=== PATIENT | male | born 1990 | race Caucasian/White ===

== ENCOUNTER → 2016-08-25 | Outpatient (CLI) | payer OTHER ==
[~2016-08-25] MED LIST: CLXUNK
--- NOTE | 2016-08-25 14:34 | DIAGNOSTIC IMAGING REPORT ---
RIGHT WRIST MIN 3 VIEWS ROUTINE CLINICAL HISTORY: R WRIST PAIN Right COMPARISON: None. DISCUSSION: The bones and joint spaces appear intact. There is no evidence of fracture, dislocation or bony disease. There is no evidence for soft tissue swelling. IMPRESSION: Negative study. Electronically signed by: Parvez Han M.D. 08/25/2016 2:33 PM Dictated Date/Time: 08/25/2016 2:30 PM
== END | disposition home or self-care (01) ==
LOC: C.RAD1850 14:15
PROVIDERS: ATTEND Emergency Medicine
DX: M25.531 Pain in right wrist (principal)

== ENCOUNTER → 2017-09-01 | Outpatient (CLI) | payer OTHER ==
[~2017-09-01] MED LIST changes: +OPTIRAY 320 IV PRN
--- NOTE | 2017-09-01 15:01 | DIAGNOSTIC IMAGING REPORT ---
ABD/PELVIS IV AND ORAL CONT CT DOSE: 622.04 mGy.cm HISTORY: Pain LOWER ABD PAIN, R/O HERNIA W/ OBSTRUCTION TECHNIQUE: Multiaxial CT images of the abdomen and pelvis were performed following the use of intravenous and oral contrast. A dose lowering technique was utilized adhering to the principles of ALARA. COMPARISON STUDY: None. FINDINGS: The lung bases are clear. The liver, spleen, gallbladder, pancreas, kidneys, and adrenal glands are within normal limits. No bowel wall thickening or obstruction. The pelvic organs are unremarkable. No suspicious lytic or blastic osseous lesions. Mild rectal fecal impaction IMPRESSION: Mild rectal fecal impaction. Otherwise negative study. The above report was generated using voice recognition software. It may contain grammatical, syntax or spelling errors. Electronically signed by: Parvez Han M.D. 09/01/2017 2:59 PM Dictated Date/Time: 09/01/2017 2:56 PM
== END | disposition home or self-care (01) ==
LOC: C.CTS 12:30
PROVIDERS: ATTEND Family Medicine
DX: K46.0 Unspecified abdominal hernia with obstruction, without gangrene (principal); R10.30 Lower abdominal pain, unspecified

== ENCOUNTER 2023-01-05 12:26 | Inpatient (IN) ==
[2023-01-05] MEDS ORDERED: RAPID SEQUENCE INDUCTION BAG ONE (12:31)
[2023-01-05] MEDS ORDERED: PROPOFOL IV EMULSION 10 MG/ML 100 ML VIAL IV ONE (12:48)
[2023-01-05] MEDS ORDERED: PROPOFOL IV EMULSION 10 MG/ML 20 ML VIAL IV ONE (12:48)
[2023-01-05] MEDS ORDERED: STAT IV Infusion **Titration per Protocol STA ×2 (12:55→14:39)
[2023-01-05] MEDS: propofoL 1,000 MG/100 ML VIAL IV SCH ×3 (13:09→23:43)
--- NOTE | 2023-01-05 13:16 | XRay Report ---
SINGLE VIEW CHEST CLINICAL HISTORY: Intubation. Aspiration. FINDINGS: 2 AP, portable, supine chest radiographs are compared to study dated 01/21/2009. An endotrac heal tube has been placed. The tip projects approximately 4 cm above the kalie on the second image. The cardiomediastinal silhouette is unremarkable. The lungs and pleural spaces are clear. No pneumoth orax is seen. The bony thorax is grossly intact. IMPRESSION: 1. An endotracheal tube has been placed as above. 2. The lungs are clear. ACT 112: Negative or not required by law. Electronically signed by: Len Dempsey M.D. 01/05/2023 1:14 PM
[2023-01-05] MEDS: PROPOFOL BOLUS FROM BAG IV PRN ×8 (13:21→15:13)
[2023-01-05 13:26] LABS: Albumin Level 4.7 gm/dl (3.4-5.0); BUN Creatinine Ratio 15.6 (10-20); Basophils # (auto) 0.05 K/uL (0.00-0.20); Basophils % (auto) 0.7 %; Bilirubin,Total 0.3 mg/dl (0.2-1.0); Calcium 9.2 mg/dl (8.6-10.3); Creatinine Clr Calc Pharmacy 149.8 ml/min; Eosinophils # (auto) 0.02 K/uL (0.00-0.50); Eosinophils % (auto) 0.3 %; Est GFR (African American) 138.2 ml/min; Est GFR (Non-African American) 119.2 ml/min; Hematocrit (blood only) 41.9 % (42.0-52.0); Hemoglobin 14.5 g/dl (14.0-18.0); Immature Granulocytes # (auto) 0.02 K/uL (0.01-0.20); Immature Granulocytes % (auto) 0.3 %; Lymphocytes % (auto) 19.2 %; Mean Corpuscular Hemoglobin 30.7 pg (25.0-34.0); Mean Corpuscular Hgb Conc 34.6 g/dL (32.0-36.0); Mean Corpuscular Volume 88.6 fL (80.0-100.0); Mean Platelet Volume 9.7 fL (9.4-12.4); Monocytes # (auto) 0.33 K/uL (0.11-0.59); Monocytes % (auto) 4.5 %; Neutrophils # (auto) 5.46 K/uL (1.40-6.50); Platelet Count 197 K/uL (130-400); Potassium 4.4 mmol/L (3.5-5.1); RDW Coefficient of Variation 13.3 % (11.5-14.5); RDW Standard Deviation 43.4 fL (36.4-46.3); Red Blood Count 4.73 M/uL (4.70-6.10); Total Protein 8.4 gm/dl (6.0-8.3); White Blood Count 7.28 K/ul (4.8-10.8)
--- NOTE | 2023-01-05 13:28 | CT Scan Report ---
CT SCAN OF THE BRAIN WITHOUT IV CONTRAST CLINICAL HISTORY: Change in mental status. Found down. COMPARISON STUDY: CT of the brain dated 09/03/2022. TECHNIQUE: Unenhanced axial CT scan of the brain is performed from the vertex to the skull base. A d ose lowering technique was utilized adhering to the principles of ALARA. CT DOSE: 688.24 mGy.cm FINDINGS: An endotracheal tube is noted on the ward supervisor tomogram. Layering fluid is noted in the pharynx. Brain parenchyma: The brain parenchyma is normal in appearance. There is no hemorrhage, mass effect, or evidence of acute territorial ischemia by CT criteria. Ceelstin-white matter differentiation is preser sherly. No extra-axial fluid collection is seen. Ventricles, sulci, cisterns: Normal in configuration. Intracranial vasculature: The visualized intracranial vasculature at the skull base is normal in appe arance. Calvarium: Unremarkable. Sinuses and mastoids: There is mild mucosal thickening and fluid within the ethmoid sinuses. Trace fl uid is seen within the right maxillary antrum, the sphenoid sinuses, and the left frontal sinus. The mastoid air cells are well pneumatized. Orbits: The bony orbits are grossly intact. IMPRESSION: No acute intracranial abnormality. ACT 112: Negative or not required by law. Electronically signed by: Len Dempsey M.D. 01/05/2023 1:26 PM
[2023-01-05] MEDS ORDERED: MIDAZOLAM HCL 1 MG/ML 2ML VIAL IV PRN (13:32)
[2023-01-05 13:53] LABS: Appearance Urine Clear (Clear); Bacteria Urine Automated Negative (Negative); Bilirubin Urine Negative (Negative); Blood Urine Negative (Negative); Color Urine Yellow; Epithelial Cell Urine Auto >30 /lpf (0-5); Glucose Urine UA Negative (Negative); Ketones Urine Trace (Negative); Leukocyte Esterase Urine Negative (Negative); Nitrite Urine Negative (Negative); Protein Urine 2+ (Negative); Specific Gravity Urine 1.028 (1.000-1.030); Urobilinogen Urine Negative (Negative)
[2023-01-05 14:05] LABS: iSTAT Arterial Blood Gas HCO3 21 meg/L (19-24); iSTAT Arterial Blood Gas pCO2 39 mmHg (35-46); iSTAT Arterial Blood Gas pH 7.33 (7.35-7.45); iSTAT Arterial Blood Gas pO2 107 mmHg (80-95); iSTAT Carbon Dioxide 22 mmol/L (24-31); iSTAT Hematocrit 42 % (42-52); iSTAT Hemoglobin 14.3 g/dl (14.0-18.0); iSTAT Potassium 3.9 mmol/L (3.3-5.0); iSTAT Sodium 142 mmol/L (135-144)
[2023-01-05 14:22] LABS: Amphetamines+Metham, Urine Neg (Neg); Barbiturates, Urine Neg (Neg); Benzodiazepine, Urine Neg (Neg); Cocaine, Urine Neg (Neg); MDMA (Ecstacy), Urine Neg (Neg); Marijuana, Urine Neg (Neg); Methadone, Urine Neg (Neg); Opiate, Urine Neg (Neg); Phencyclidine, Urine Neg (Neg)
[2023-01-05] MEDS ORDERED: fentaNYL BOLUS from BAG IV PRN (14:39)
[2023-01-05] MEDS ORDERED: fentaNYL citrate 2,500 MCG/250 ML BAG IV SCH (14:45)
[2023-01-05] MEDS ORDERED: dexMEDEtomidine 200 MCG/50 ML BAG IV SCH (14:45)
--- NOTE | 2023-01-05 14:45 | Emergency Department Note ---
Impression & Plan Alcohol intoxication, Obtunded ED Provider Note NAME: BRIAN WILLIAM III AGE: 32 SEX: M : 1990 ARRIVES VIA: Ambulance INFORMANT: Patient, ED PROVIDER(S): Tanika Pacheco MD CHIEF COMPLAINT: Unresponsive HPI: This is a 32-year-old male with history of alcohol use disorder, ADHD, migraines presenting for unresponsiveness. Patient was reportedly found by his neighbors after hearing outside. Upon EMS arrival patient was facedown in the bathroom covered in emesis. He had spontaneous respirations but was essentially unresponsive for them, only responding occasionally to painful stimuli. He was nontracking. Upon arrival to the emergency department here, patient is having spontaneous respirations, covered in emesis from his mouth, head, has gurgling respirations. He had episodes of coughing while here. He opens his eyes to nasal stimuli but does not track. He eventually was responsive to commands such as squeezing hands or wiggling toes. The patient however was still fairly obtunded, concern for airway requiring intubation. ROS: See above HPI for pertinent positives & negatives. A total of 10 systems reviewed and were otherwise negative. PAST MEDICAL HISTORY: See Below PAST SURGICAL HISTORY: See Below FAMILY HISTORY: See Below SOCIAL HISTORY: See Below HOME MEDICATIONS: See Below ALLERGIES: See Below VITALS: See Below PHYSICAL EXAMINATION: General: Unresponsive, obtunded Head: Normocephalic covered in emesis Eyes: Normal inspection, extraocular muscles intact Ear, nose, throat: Normal external exam Neck: Normal range of motion Respiratory: Rhonchi in all lung rodriguez Cardiovascular: Regular rate/rhythm, no murmur GI: soft, nontender, no guarding or rebound Extremities: nontender, moves all extremities Neuro: Obtunded, moves all extremities to command Skin: Warm, dry, and intact MEDICAL DECISION MAKING: This is a 32-year-old male with history of alcohol use disorder, ADHD, migraines presenting for unresponsiveness. Patient required intubation due to obstructing airway and obvious emesis concerning for aspiration event. Patient admitted with 7.5 tube, no complications. Patient went over CT without acute intracranial process on CT read. Chest x-ray reveals initially 2 that is somewhat deep, retracted with formularies above kalie now. Patient is waking up and requiring further sedation. Patient's alcohol level comes back at 565 explaining patient's obtunded state. Switch from propofol to include Versed with pushes of each. Discussed case with patient's father as well as sister over the phone. ICU down to bedside evaluate the patient. Discussed case with hospitalist for admission. Lab work reviewed showing no leukocytosis or anemia, ABG reveals no hypercarbia, pO2 107. Patient does have a elevated lactic as well which for as well as a transaminitis and elevated lipase concerning for early pancreatitis. Patient excepted to hospital/ICU under Dr. Cortez, hospitalist and Dr. Santillan, telecommunications consultant. Triage Nursing notes reviewed. Prior medical records reviewed Vital Signs: reviewed and remarkable for no significant abnormalities Differential diagnosis: Stroke, intracranial hemorrhage, drug intoxication, opiate overdose, alcohol overdose ER treatment provided: See below Diagnostics interpreted by me: ECG: ECG independently interpreted by me with normal sinus rhythm, rate of 98, normal axis, normal SC, normal QRS, normal QTc, no ST segment elevations consistent with STEMI criteria Cardiac Monitoring: An order was placed for continuous cardiac monitoring. The monitor shows a rate of 97 with sinus rhythm Laboratory studies: As stated above and show below. Imaging studies: See below. Radiographic imaging was reviewed by myself Consultation(s): None Endotracheal Intubation Indication diminished GCS, aspiration The patient was on 100% oxygen via NRB prior to the procedure. Suction, airway equipment, RSI drugs, respiratory equipment, and appropriate personnel were prepared prior to the initiation of the procedure. A time out was taken. Induction was performed with etomidate.. After observing the clinical benefit of the medications, the airway was easily visualized utilizing a video laryngoscope. A 7.5 size ETT tube was placed atraumatically to 25 cm using standard technique. The cuff inflated without signs of malfunction. There were bilateral breath sounds, positive colormetric change, no gastric sounds, a good capnography waveform, and post procedure pulse oximetry was 99%. Post intubation sedation was administered using propofol. There were no complications. Critical Care Note: I have personally spent 65 minutes of critical care time in the direct management of this patient. This includes bedside care, interpretation of diagnostic studies, and testing, discussion with consultants, patient, and family members, and other required patient management activities. This 65 minutes is in excess of all separately billable procedures. Past Med/Surg History Medical History History of multiple concussions No pertinent past medical history Surgical History No pertinent past surgical history No significant past surgical history S/P wisdom tooth extraction S/P wrist surgery Family History Mother No pertinent family history Father No pertinent family history Social History Smoking Status: Unknown if ever smoked Tobacco Type: Smokeless Tobacco (Dip or Chew) Preferred Language: Yi marital status: current occupational status: employed Feels Safe at Home: Yes Allergies Allergies Allergy/AdvReac Type Severity Reaction Status Date / Time azithromycin AdvReac Intermediate Gastrointestinal Verified 01/05/23 15:22 Upset Home Meds Home Medications Medication Instructions Recorded Confirmed acetaminophen 325 mg tablet 650 mg PO QID PRN Pain 04/17/19 01/05/23 (Tylenol) ibuprofen 200 mg tablet (Advil) 200 mg PO DIRECTED PRN Pain 09/03/22 01/05/23 Results & Data (ED) Vital Signs Vital Signs - 24 hr 01/05/23 12:29 01/05/23 12:33 01/05/23 12:40 Temperature Temperature Source Pulse Rate 105 H 115 H 116 H Pulse Rate [Apical] Pulse Rate from SpO2 Sensor 111 H 115 H Pulse Rhythm Regular Pulse Strength Normal Respiratory Rate 20 22 17 Respiratory Effort / Characteristics Non-Labored Spontaneous Respiratory Depth Normal Blood Pressure 127/88 127/88 124/90 Blood Pressure [Right Arm] Blood Pressure Mean 101 101 101 Blood Pressure Mean [Right Arm] Blood Pressure Position Lying Pulse Oximetry 94 92 98 Oxygen Delivery Method Room Air Room Air Room Air Fraction of Inspired Oxygen SaO2/FiO2 Ratio Sepsis Recent Fever Within 48 Hours No Sepsis New/Unexplained Change in Mental Status No Sepsis Action Taken by Nursing No Action Required End-Tidal CO2 01/05/23 12:50 01/05/23 13:02 01/05/23 13:02 Temperature 34.2 C L Temperature Source Simmons Cath ( Temp Sensing) Pulse Rate 120 H 102 H Pulse Rate [Apical] Pulse Rate from SpO2 Sensor 120 H 102 H Pulse Rhythm Pulse Strength Respiratory Rate 12 16 Respiratory Effort / Characteristics Respiratory Depth Blood Pressure 133/98 Blood Pressure [Right Arm] Blood Pressure Mean 109 Blood Pressure Mean [Right Arm] Blood Pressure Position Pulse Oximetry 100 99 Oxygen Delivery Method Mechanical Vent Fraction of Inspired Oxygen SaO2/FiO2 Ratio Sepsis Recent Fever Within 48 Hours Sepsis New/Unexplained Change in Mental Status Sepsis Action Taken by Nursing End-Tidal CO2 38 34 01/05/23 13:10 01/05/23 13:11 01/05/23 13:17 Temperature Temperature Source Pulse Rate 115 H 105 H 102 H Pulse Rate [Apical] Pulse Rate from SpO2 Sensor 115 H 105 H Pulse Rhythm Pulse Strength Respiratory Rate 17 16 Respiratory Effort / Characteristics Respiratory Depth Blood Pressure 138/105 H 133/99 Blood Pressure [Right Arm] Blood Pressure Mean 116 110 Blood Pressure Mean [Right Arm] Blood Pressure Position Pulse Oximetry 100 100 Oxygen Delivery Method Mechanical Vent Mechanical Vent Fraction of Inspired Oxygen SaO2/FiO2 Ratio Sepsis Recent Fever Within 48 Hours Sepsis New/Unexplained Change in Mental Status Sepsis Action Taken by Nursing End-Tidal CO2 34 38 01/05/23 13:23 01/05/23 13:26 01/05/23 13:28 Temperature Temperature Source Pulse Rate 99 H 108 H 100 H Pulse Rate [Apical] Pulse Rate from SpO2 Sensor 98 H 108 H Pulse Rhythm Pulse Strength Respiratory Rate 9 L 17 16 Respiratory Effort / Characteristics Respiratory Depth Blood Pressure 122/93 121/87 Blood Pressure [Right Arm] Blood Pressure Mean 102 98 Blood Pressure Mean [Right Arm] Blood Pressure Position Pulse Oximetry 99 100 100 Oxygen Delivery Method Fraction of Inspired Oxygen 30 SaO2/FiO2 Ratio Sepsis Recent Fever Within 48 Hours Sepsis New/Unexplained Change in Mental Status Sepsis Action Taken by Nursing End-Tidal CO2 37 39 36 01/05/23 13:30 01/05/23 13:31 01/05/23 13:35 Temperature Temperature Source Pulse Rate 91 H Pulse Rate [Apical] Pulse Rate from SpO2 Sensor 97 H 98 H 91 H Pulse Rhythm Pulse Strength Respiratory Rate 16 17 16 Respiratory Effort / Characteristics Respiratory Depth Blood Pressure 95/63 L 111/73 104/68 Blood Pressure [Right Arm] Blood Pressure Mean 73 85 80 Blood Pressure Mean [Right Arm] Blood Pressure Position Pulse Oximetry 98 100 100 Oxygen Delivery Method Mechanical Vent Mechanical Vent Mechanical Vent Fraction of Inspired Oxygen SaO2/FiO2 Ratio Sepsis Recent Fever Within 48 Hours Sepsis New/Unexplained Change in Mental Status Sepsis Action Taken by Nursing End-Tidal CO2 41 38 39 01/05/23 13:40 01/05/23 13:43 01/05/23 13:49 Temperature 35.2 C L Temperature Source Simmons Cath ( Temp Sensing) Pulse Rate 92 H 94 H Pulse Rate [Apical] Pulse Rate from SpO2 Sensor 92 H 93 H Pulse Rhythm Pulse Strength Respiratory Rate 17 17 Respiratory Effort / Characteristics Respiratory Depth Blood Pressure 107/67 103/73 Blood Pressure [Right Arm] Blood Pressure Mean 80 83 Blood Pressure Mean [Right Arm] Blood Pressure Position Pulse Oximetry 100 100 Oxygen Delivery Method Mechanical Vent Mechanical Vent Fraction of Inspired Oxygen SaO2/FiO2 Ratio Sepsis Recent Fever Within 48 Hours Sepsis New/Unexplained Change in Mental Status Sepsis Action Taken by Nursing End-Tidal CO2 37 35 01/05/23 13:50 01/05/23 14:00 01/05/23 14:10 Temperature Temperature Source Pulse Rate 93 H 94 H 99 H Pulse Rate [Apical] Pulse Rate from SpO2 Sensor 94 H 98 H 99 H Pulse Rhythm Pulse Strength Respiratory Rate 16 17 18 Respiratory Effort / Characteristics Respiratory Depth Blood Pressure 108/71 112/87 125/77 Blood Pressure [Right Arm] Blood Pressure Mean 83 95 93 Blood Pressure Mean [Right Arm] Blood Pressure Position Pulse Oximetry 100 100 100 Oxygen Delivery Method Mechanical Vent Mechanical Vent Mechanical Vent Fraction of Inspired Oxygen SaO2/FiO2 Ratio Sepsis Recent Fever Within 48 Hours Sepsis New/Unexplained Change in Mental Status Sepsis Action Taken by Nursing End-Tidal CO2 35 37 45 01/05/23 15:00 01/05/23 15:02 01/05/23 15:08 Temperature 35.7 C L Temperature Source Simmons Cath ( Temp Sensing) Pulse Rate 72 Pulse Rate [Apical] Pulse Rate from SpO2 Sensor 73 Pulse Rhythm Pulse Strength Respiratory Rate 16 Respiratory Effort / Characteristics Respiratory Depth Blood Pressure 109/64 Blood Pressure [Right Arm] Blood Pressure Mean 78 Blood Pressure Mean [Right Arm] Blood Pressure Position Pulse Oximetry 100 Oxygen Delivery Method Mechanical Vent Mechanical Vent Fraction of Inspired Oxygen SaO2/FiO2 Ratio Sepsis Recent Fever Within 48 Hours Sepsis New/Unexplained Change in Mental Status Sepsis Action Taken by Nursing End-Tidal CO2 33 01/05/23 15:10 01/05/23 15:20 01/05/23 15:20 Temperature Temperature Source Pulse Rate 88 82 Pulse Rate [Apical] Pulse Rate from SpO2 Sensor 88 82 Pulse Rhythm Pulse Strength Respiratory Rate 17 Respiratory Effort / Characteristics Respiratory Depth Blood Pressure 107/65 102/65 Blood Pressure [Right Arm] Blood Pressure Mean 80 75 Blood Pressure Mean [Right Arm] Blood Pressure Position Pulse Oximetry 100 100 Oxygen Delivery Method Mechanical Vent Fraction of Inspired Oxygen SaO2/FiO2 Ratio Sepsis Recent Fever Within 48 Hours Sepsis New/Unexplained Change in Mental Status Sepsis Action Taken by Nursing End-Tidal CO2 33 01/05/23 15:30 01/05/23 15:30 01/05/23 15:40 Temperature Temperature Source Pulse Rate 69 70 Pulse Rate [Apical] Pulse Rate from SpO2 Sensor 68 71 Pulse Rhythm Pulse Strength Respiratory Rate 16 Respiratory Effort / Characteristics Respiratory Depth Blood Pressure 107/57 L 103/64 Blood Pressure [Right Arm] Blood Pressure Mean 66 71 Blood Pressure Mean [Right Arm] Blood Pressure Position Pulse Oximetry 100 100 Oxygen Delivery Method Mechanical Vent Fraction of Inspired Oxygen SaO2/FiO2 Ratio Sepsis Recent Fever Within 48 Hours Sepsis New/Unexplained Change in Mental Status Sepsis Action Taken by Nursing End-Tidal CO2 33 33 01/05/23 15:50 01/05/23 16:00 01/05/23 16:10 Temperature Temperature Source Pulse Rate 72 74 74 Pulse Rate [Apical] Pulse Rate from SpO2 Sensor 73 72 74 Pulse Rhythm Pulse Strength Respiratory Rate 17 16 16 Respiratory Effort / Characteristics Respiratory Depth Blood Pressure 104/67 106/64 108/66 Blood Pressure [Right Arm] Blood Pressure Mean 79 78 80 Blood Pressure Mean [Right Arm] Blood Pressure Position Pulse Oximetry 100 100 100 Oxygen Delivery Method Mechanical Vent Mechanical Vent Mechanical Vent Fraction of Inspired Oxygen SaO2/FiO2 Ratio Sepsis Recent Fever Within 48 Hours Sepsis New/Unexplained Change in Mental Status Sepsis Action Taken by Nursing End-Tidal CO2 33 32 33 01/05/23 16:20 01/05/23 16:30 01/05/23 16:40 Temperature Temperature Source Pulse Rate 75 71 78 Pulse Rate [Apical] Pulse Rate from SpO2 Sensor 75 71 79 Pulse Rhythm Pulse Strength Respiratory Rate 17 16 16 Respiratory Effort / Characteristics Respiratory Depth Blood Pressure 107/65 113/74 116/66 Blood Pressure [Right Arm] Blood Pressure Mean 79 87 82 Blood Pressure Mean [Right Arm] Blood Pressure Position Pulse Oximetry 100 100 100 Oxygen Delivery Method Mechanical Vent Mechanical Vent Mechanical Vent Fraction of Inspired Oxygen SaO2/FiO2 Ratio Sepsis Recent Fever Within 48 Hours Sepsis New/Unexplained Change in Mental Status Sepsis Action Taken by Nursing End-Tidal CO2 32 31 31 01/05/23 16:50 01/05/23 17:00 Temperature Temperature Source Pulse Rate 81 Pulse Rate [Apical] 79 Pulse Rate from SpO2 Sensor 81 Pulse Rhythm Pulse Strength Respiratory Rate 17 19 Respiratory Effort / Characteristics Mechanically Ventilated Respiratory Depth Normal Blood Pressure 108/69 Blood Pressure [Right Arm] 102/63 Blood Pressure Mean 82 Blood Pressure Mean [Right Arm] 76 Blood Pressure Position Pulse Oximetry 100 100 Oxygen Delivery Method Mechanical Vent Mechanical Vent Fraction of Inspired Oxygen 30 SaO2/FiO2 Ratio 333 Sepsis Recent Fever Within 48 Hours Sepsis New/Unexplained Change in Mental Status Sepsis Action Taken by Nursing End-Tidal CO2 31 Laboratory Data 01/05/23 12:38 01/05/23 12:38 Lab Results 01/05/23 01/05/23 01/05/23 Range/Units 12:38 13:03 13:47 WBC 7.28 (4.8-10.8) K/ul RBC 4.73 (4.70-6.10) M/uL Hgb 14.5 (14.0-18.0) g/dl POC Hgb 14.3 (14.0-18.0) g/dl Hct 41.9 L (42.0-52.0) % POC Hct 42 (42-52) % MCV 88.6 (80.0-100.0) fL MCH 30.7 (25.0-34.0) pg MCHC 34.6 (32.0-36.0) g/dL RDW Std Deviation 43.4 (36.4-46.3) fL RDW Coeff of Corine 13.3 (11.5-14.5) % Plt Count 197 (130-400) K/uL MPV 9.7 (9.4-12.4) fL Immature Gran % (Auto) 0.3 % Neut % (Auto) 75.0 % Lymph % (Auto) 19.2 % [place] % (Auto) 4.5 % Eos % (Auto) 0.3 % Baso % (Auto) 0.7 % Neut # (Auto) 5.46 (1.40-6.50) K/uL Lymph # (Auto) 1.40 (1.20-3.40) K/uL [place] # (Auto) 0.33 (0.11-0.59) K/uL Eos # (Auto) 0.02 (0.00-0.50) K/uL Baso # (Auto) 0.05 (0.00-0.20) K/uL Immature Gran # (Auto) 0.02 (0.01-0.20) K/uL POC pH 7.33 L (7.35-7.45) POC pCO2 39 (35-46) mmHg POC pO2 107 H (80-95) mmHg POC HCO3 21 (19-24) laura/L POC Total CO2 22 L (24-31) mmol/L POC Base Excess -5.0 (-9-1.8) laura/L POC ABG O2 Sat 98.0 H (90-95) % POC Sodium 142 (135-144) mmol/L Sodium 142 (136-145) mmol/L POC Potassium 3.9 (3.3-5.0) mmol/L Potassium 4.4 (3.5-5.1) mmol/L Chloride 105 (98-107) mmol/L Carbon Dioxide 25 (21-32) mmol/L Anion Gap 12 H (3-11) BUN 12 (6-23) mg/dl Creatinine 0.77 (0.6-1.4) mg/dl Est Cr Clr Drug Dosing 149.8 ml/min Est GFR ( Amer) 138.2 ml/min Est GFR (Non-Af Amer) 119.2 ml/min BUN/Creatinine Ratio 15.6 (10-20) Glucose 118 H (70-99(Fasting)) mg/dl Lactate 4.0 H* (0.4-2.0) mmol/L Calcium 9.2 (8.6-10.3) mg/dl Total Bilirubin 0.3 (0.2-1.0) mg/dl Direct Bilirubin 0.0 (0-0.2) mg/dl AST 86 H (13-39) U/L ALT 112 H (7-52) U/L Alkaline Phosphatase 72 (34-104) U/L Ammonia 24.0 (18-72) umol/L Total Protein 8.4 H (6.0-8.3) gm/dl Albumin 4.7 (3.4-5.0) gm/dl Lipase 151 H (11-82) U/L Urine Color Yellow Urine Appearance Clear (Clear) Urine pH 5.0 (4.5-7.5) Ur Specific [place] 1.028 (1.000-1.030) Urine Protein 2+ H (Negative) Urine Glucose (UA) Negative (Negative) Urine Ketones Trace H (Negative) Urine Blood Negative (Negative) Urine Nitrite Negative (Negative) Urine Bilirubin Negative (Negative) Urine Urobilinogen Negative (Negative) Ur Leukocyte Esterase Negative (Negative) Urine WBC (Auto) 1-5 (0-5) /hpf Urine RBC (Auto) 5-10 H (0-4) /hpf U Hyaline Cast (Auto) 1-5 (0-5) /lpf U Epithel Cells (Auto) >30 H (0-5) /lpf Urine Bacteria (Auto) Negative (Negative) Urine Opiates Screen Neg (Neg) Ur Methadone, Qual Neg (Neg) Urine Barbiturates Neg (Neg) Ur Phencyclidine (PCP) Neg (Neg) U Amphetamin/Meth Scrn Neg (Neg) MDMA (Ecstasy) Screen Neg (Neg) U Benzodiazepines Scrn Neg (Neg) Ur Cocaine Metabolite Neg (Neg) U Marijuana (THC) Screen Neg (Neg) Ethyl Alcohol mg/dL (<10.0) mg/dl 01/05/23 01/05/23 Range/Units 13:49 16:50 WBC (4.8-10.8) K/ul RBC (4.70-6.10) M/uL Hgb (14.0-18.0) g/dl POC Hgb (14.0-18.0) g/dl Hct (42.0-52.0) % POC Hct (42-52) % MCV (80.0-100.0) fL MCH (25.0-34.0) pg MCHC (32.0-36.0) g/dL RDW Std Deviation (36.4-46.3) fL RDW Coeff of Corine (11.5-14.5) % Plt Count (130-400) K/uL MPV (9.4-12.4) fL Immature Gran % (Auto) % Neut % (Auto) % Lymph % (Auto) % [place] % (Auto) % Eos % (Auto) % Baso % (Auto) % Neut # (Auto) (1.40-6.50) K/uL Lymph # (Auto) (1.20-3.40) K/uL [place] # (Auto) (0.11-0.59) K/uL Eos # (Auto) (0.00-0.50) K/uL Baso # (Auto) (0.00-0.20) K/uL Immature Gran # (Auto) (0.01-0.20) K/uL POC pH (7.35-7.45) POC pCO2 (35-46) mmHg POC pO2 (80-95) mmHg POC HCO3 (19-24) laura/L POC Total CO2 (24-31) mmol/L POC Base Excess (-9-1.8) laura/L POC ABG O2 Sat (90-95) % POC Sodium (135-144) mmol/L Sodium (136-145) mmol/L POC Potassium (3.3-5.0) mmol/L Potassium (3.5-5.1) mmol/L Chloride (98-107) mmol/L Carbon Dioxide (21-32) mmol/L Anion Gap (3-11) BUN (6-23) mg/dl Creatinine (0.6-1.4) mg/dl Est Cr Clr Drug Dosing ml/min Est GFR ( Amer) ml/min Est GFR (Non-Af Amer) ml/min BUN/Creatinine Ratio (10-20) Glucose (70-99(Fasting)) mg/dl Lactate 3.3 H* (0.4-2.0) mmol/L Calcium (8.6-10.3) mg/dl Total Bilirubin (0.2-1.0) mg/dl Direct Bilirubin (0-0.2) mg/dl AST (13-39) U/L ALT (7-52) U/L Alkaline Phosphatase (34-104) U/L Ammonia (18-72) umol/L Total Protein (6.0-8.3) gm/dl Albumin (3.4-5.0) gm/dl Lipase (11-82) U/L Urine Color Urine Appearance (Clear) Urine pH (4.5-7.5) Ur Specific [place] (1.000-1.030) Urine Protein (Negative) Urine Glucose (UA) (Negative) Urine Ketones (Negative) Urine Blood (Negative) Urine Nitrite (Negative) Urine Bilirubin (Negative) Urine Urobilinogen (Negative) Ur Leukocyte Esterase (Negative) Urine WBC (Auto) (0-5) /hpf Urine RBC (Auto) (0-4) /hpf U Hyaline Cast (Auto) (0-5) /lpf U Epithel Cells (Auto) (0-5) /lpf Urine Bacteria (Auto) (Negative) Urine Opiates Screen (Neg) Ur Methadone, Qual (Neg) Urine Barbiturates (Neg) Ur Phencyclidine (PCP) (Neg) U Amphetamin/Meth Scrn (Neg) MDMA (Ecstasy) Screen (Neg) U Benzodiazepines Scrn (Neg) Ur Cocaine Metabolite (Neg) U Marijuana (THC) Screen (Neg) Ethyl Alcohol mg/dL 565.1 H (<10.0) mg/dl Administered Medications Fentanyl Citrate (Fentanyl Bolus From Bag) 50 mcg IV Q60M PRN PRN Reason: Pain or Agitation Stop: 01/19/23 14:38 Last Admin: 01/05/23 15:23 Dose: 50 mcg Documented By: ALISTAIR Co-signed By: GA Propofol (Diprivan) 1,000 mg in 100 mls @ 23.058 mls/hr IV .Q4H21M [facility]; Protocol Stop: 01/08/23 12:59 Last Titration: 01/05/23 15:20 Dose: 45 mcg/kg/min, 23.1 mls/hr Documented By: Titration: 01/05/23 15:07 Dose: 40 mcg/kg/min, 20.5 mls/hr Documented By: Titration: 01/05/23 14:57 Dose: 45 mcg/kg/min, 23.1 mls/hr Documented By: Titration: 01/05/23 14:00 Dose: 50 mcg/kg/min, 25.6 mls/hr Documented By: Titration: 01/05/23 13:45 Dose: 45 mcg/kg/min, 23.1 mls/hr Documented By: Titration: 01/05/23 13:34 Dose: 50 mcg/kg/min, 25.6 mls/hr Documented By: Titration: 01/05/23 13:26 Dose: 45 mcg/kg/min, 23.1 mls/hr Documented By: Admin: 01/05/23 13:09 Dose: 40 mcg/kg/min, 20.5 mls/hr Documented By: MICHAEL Co-signed By: MENDY Fentanyl Citrate (Fentanyl Citrate) 2,500 mcg in 250 mls @ 2.5 mls/hr IV .Q96H [facility]; Protocol Stop: 01/19/23 14:44 Last Titration: 01/05/23 16:34 Dose: 50 mcg/hr, 5 mls/hr Documented By: ALISTAIR Co-signed By: PATRICIO Admin: 01/05/23 14:49 Dose: 25 mcg/hr, 2.5 mls/hr Documented By: MICHAEL Co-signed By: PATRICIO Propofol (Propofol Bolus From Bag) 20 mg IV Q5M PRN PRN Reason: Sedation Stop: 01/08/23 12:54 Last Admin: 01/05/23 15:13 Dose: 20 mg Documented By: ALISTAIR Co-signed By: MENDY Admin: 01/05/23 14:35 Dose: 20 mg Documented By: MICHAEL Co-signed By: BRITTANY Admin: 01/05/23 14:27 Dose: 20 mg Documented By: MICHAEL Co-signed By: CAITLIN Admin: 01/05/23 14:19 Dose: 20 mg Documented By: MICHAEL Co-signed By: CAITLIN Admin: 01/05/23 14:10 Dose: 20 mg Documented By: MICHAEL Co-signed By: MENDY Admin: 01/05/23 13:34 Dose: 20 mg Documented By: MICHAEL Co-signed By: DIANA Admin: 01/05/23 13:29 Dose: 20 mg Documented By: MICHAEL Co-signed By: DIANA Admin: 01/05/23 13:21 Dose: 20 mg Documented By: MICHAEL Co-signed By: MENDY Discontinued Medications Thiamine HCl 500 mg/ Sodium (Chloride) 55 mls @ 210 mls/hr IV NOW STA Stop: 01/05/23 15:51 Last Infusion: 01/05/23 16:50 Dose: Infused Documented By: Admin: 01/05/23 16:33 Dose: 210 mls/hr Documented By: ALISTAIR Parenteral Electrolytes (Plasma-Lyte A Ph 7.4) 1,000 mls @ 999 mls/hr IV .Q1H1M ONE Stop: 01/05/23 16:39 Last Infusion: 01/05/23 16:54 Dose: Infused Documented By: Admin: 01/05/23 15:52 Dose: 999 mls/hr Documented By: ALISTAIR Midazolam HCl (Midazolam Hcl 1 Mg/Ml 2ml Vial) 2 mg IV Q2H PRN PRN Reason: RASS goal -1 Stop: 02/04/23 13:31 Last Admin: 01/05/23 13:38 Dose: 2 mg Documented By: NH Miscellaneous (Rapid Sequence Induction Bag) Confirm Administered Dose 1 each N/A .STK-MED ONE Stop: 01/05/23 12:32 Last Admin: 01/05/23 13:09 Dose: Not Given Documented By: NH Propofol (Propofol Iv Emulsion 10 Mg/Ml 20 Ml Vial) Confirm Administered Dose 200 mg IV .STK-MED ONE Stop: 01/05/23 12:49 Last Admin: 01/05/23 13:05 Dose: Not Given Documented By: NH Propofol (Propofol Iv Emulsion 10 Mg/Ml 100 Ml Vial) Confirm Administered Dose 1,000 mg IV .STK-MED ONE Stop: 01/05/23 12:49 Last Admin: 01/05/23 13:08 Dose: Not Given Documented By: [place] Imaging Data Radiologist's Impression: Chest X-Ray 01/05/23 13:03 SINGLE VIEW CHEST CLINICAL HISTORY: Intubation. Aspiration. FINDINGS: 2 AP, portable, supine chest radiographs are compared to study dated 01/21/2009. An endotracheal tube has been placed. The tip projects approximately 4 cm above the kalie on the second image. The cardiomediastinal silhouette is unremarkable. The lungs and pleural spaces are clear. No pneumothorax is seen. The bony thorax is grossly intact. IMPRESSION: 1. An endotracheal tube has been placed as above. 2. The lungs are clear. ACT 112: Negative or not required by law. Electronically signed by: Len Dempsey M.D. 01/05/2023 1:[address] 01/05/23 13:03 CT SCAN OF THE BRAIN WITHOUT IV CONTRAST CLINICAL HISTORY: Change in mental status. Found down. COMPARISON STUDY: CT of the brain dated 09/03/2022. TECHNIQUE: Unenhanced axial CT scan of the brain is performed from the vertex to the skull base. A dose lowering technique was utilized adhering to the principles of ALARA. CT DOSE: 688.24 mGy.cm FINDINGS: An endotracheal tube is noted on the electronic sales and service technician tomogram. Layering fluid is noted in the pharynx. Brain parenchyma: The brain parenchyma is normal in appearance. There is no hemorrhage, mass effect, or evidence of acute territorial ischemia by CT criteria. Celestin-white matter differentiation is preserved. No extra-axial fluid collection is seen. Ventricles, sulci, cisterns: Normal in configuration. Intracranial vasculature: The visualized intracranial vasculature at the skull base is normal in appearance. Calvarium: Unremarkable. Sinuses and mastoids: There is mild mucosal thickening and fluid within the ethmoid sinuses. Trace fluid is seen within the right maxillary antrum, the sphenoid sinuses, and the left frontal sinus. The mastoid air cells are well pneumatized. Orbits: The bony orbits are grossly intact. IMPRESSION: No acute intracranial abnormality. ACT 112: Negative or not required by law. Electronically signed by: Len Dempsey M.D. 01/05/2023 1:26 PM Discharge Plan Visit Data Chief Complaint: Unresponsive ED Provider: Tanika Pacheco Discharge Problem: Alcohol intoxication, Obtunded Forms Stand Alone Forms: My [facility] Prescriptions Prescriptions: No Action acetaminophen [Tylenol] 325 mg Tablet 650 mg PO QID PRN (Reason: Pain) ibuprofen [Advil] 200 mg Tablet 200 mg PO DIRECTED PRN (Reason: Pain) Referrals Referrals: Hoang Aguayo [Primary Care Provider] -
[2023-01-05] MEDS ORDERED: ROCURONIUM BROMIDE 10 MG/ML 5 ML VIAL IV ONE (15:25)
[2023-01-05] MEDS ORDERED: ETOMIDATE 2 MG/ML 20 ML VIAL IV ONE (15:25)
[2023-01-05] MEDS ORDERED: THIAMINE HCL 500 MG in SODIUM CHLORIDE 0.9% 50 ML IV STA (15:36)
[2023-01-05] MEDS ORDERED: PLASMA-LYTE A 1,000 ML IV ONE (15:39)
--- NOTE | 2023-01-05 15:45 | History & Physical Report ---
Date of Service January 05, 2023 Assessment & Plan (1) Alcohol intoxication: Plan: Acute alcohol intoxication Alcohol level of 565 on admission Intubated for airway protection VBG 7.33/39/107/21 lactate 4.0 with poor urine output at time of admission. patient is additionally tachycardic and mildly hypotensive. No leukocytosis or fever, do not suspect infectious etiology. 1 L Plasma-Lyte bolus ordered at time of admission, folic acid/thiamine repletion give. Continue IVF M. Reboluses indicated based on urine output, vitals, and lactate trend. No history of heart failure or volume overload No leukocytosis, lungs are clear to asucultation - CThead without acute finding, CXR without evidence of aspiration Lipase elevated, mild transaminitis without hyperbilirubinemia. Suspect 2/2 ETOH (2) History of multiple concussions: Plan: Hx post-concussion syndrome. Follows with neurology. Has had ADHD/headache/postconcussive syndrome; follow-up MRI and formal neuropsychologic evaluation was recommended by neurology, follow-up on this is unclear and history cannot be elicited from patient at bedside due to ETT. Patient was recommended to start Topamax for migrainous headaches however this does not appear to have been filled. He was post aripiprazole 2 mg daily, Bupropion 150mg daily last filled 10/2022 for 30-day supply. This does not appear to have been refilled since. Plan DVT prophylaxis: Lovenox Disposition: ICU while intubated CODE STATUS: Full code Diet: N.p.o. History of Present Illness Primary Care Provider: Hoang Aguayo Olvin is a 32-year-old male with a history of anxiety/depression, postconcussion syndrome, and alcohol abuse who presents to the ER with alcohol intoxication and he was intubated with a alcohol level of over 500. He was recommended for admission to ICU for ventilator management and treatment of acute alcohol intoxication. History is limited by ETT and sedation. He withdraws to noxious stimuli bilaterally and has intact corneal reflex at bedside. Lungs are clear bilaterally. History limited by ETT. Collateral pending from PCP Allergies Allergy/AdvReac Type Severity Reaction Status Date / Time azithromycin AdvReac Intermediate Gastrointestinal Verified 01/05/23 15:22 Upset Home Medications Medication Instructions Recorded Confirmed Type acetaminophen 325 mg tablet 650 mg PO QID PRN Pain 04/17/19 01/05/23 History (Tylenol) ibuprofen 200 mg tablet (Advil) 200 mg PO DIRECTED PRN Pain 09/03/22 01/05/23 History Past Med/Surg History Medical History History of multiple concussions No pertinent past medical history Surgical History No pertinent past surgical history No significant past surgical history S/P wisdom tooth extraction S/P wrist surgery Family History Mother No pertinent family history Father No pertinent family history Social History Smoking Status: Unknown if ever smoked Tobacco Type: Smokeless Tobacco (Dip or Chew) Preferred Language: Czech marital status: current occupational status: employed Feels Safe at Home: Yes Physical Exam Physical Exam: General: ETT in place. Corneal reflex intact, withdraws to noxious stimuli of the thumb bilaterally HEENT: Atraumatic, normocephalic. Pulm: CTAB A&P. -wheezes, -rales, -rhonchi. Symmetrical chest rise. No increased work of breathing. No respiratory distress. Cardiac: RRR, -mrg. Radial pulses intact and symmetrical. Abdominal: Nontender, nondistended, soft. BS present. Extremities: No edema Results & Data Results & Data Vital Signs (Past 12 Hours) Vital Signs Temp Pulse Resp BP Pulse Ox O2 Del Method FiO2 01/05/23 15:30 107/57 L 01/05/23 15:30 69 16 100 01/05/23 15:20 102/65 01/05/23 15:20 82 17 100 01/05/23 15:10 88 107/65 100 Mechanical Vent 01/05/23 15:08 Mechanical Vent 01/05/23 15:02 35.7 C L 01/05/23 15:00 72 16 109/64 100 Mechanical Vent 01/05/23 14:10 99 H 18 125/77 100 Mechanical Vent 01/05/23 14:00 94 H 17 112/87 100 Mechanical Vent 01/05/23 13:50 93 H 16 108/71 100 Mechanical Vent 01/05/23 13:49 94 H 17 103/73 100 Mechanical Vent 01/05/23 13:43 35.2 C L 01/05/23 13:40 92 H 17 107/67 100 Mechanical Vent 01/05/23 13:35 91 H 16 104/68 100 Mechanical Vent 01/05/23 13:31 17 111/73 100 Mechanical Vent 01/05/23 13:30 16 95/63 L 98 Mechanical Vent 01/05/23 13:28 100 H 16 100 30 01/05/23 13:26 108 H 17 121/87 100 01/05/23 13:23 99 H 9 L 122/93 99 01/05/23 13:17 102 H 01/05/23 13:11 105 H 16 133/99 100 Mechanical Vent 01/05/23 13:10 115 H 17 138/105 H 100 Mechanical Vent 01/05/23 13:02 102 H 16 133/98 99 Mechanical Vent 01/05/23 13:02 34.2 C L 01/05/23 12:50 120 H 12 100 01/05/23 12:40 116 H 17 124/90 98 Room Air 01/05/23 12:33 115 H 22 127/88 92 Room Air 01/05/23 12:29 105 H 20 127/88 94 Room Air PG Care Time/CCT Total # of Minutes Spent Total Time Spent with Patient: Total time spent is greater than 50% in coordination of care (as documented) at patient's floor/unit and/or counseling patient: Coding Level of Care Code 39294 INT INP/OBS CARE 3/75MIN Diagnoses Alcohol intoxication F10.929 History of multiple concussions Z87.820
--- NOTE | 2023-01-05 16:25 | Critical Care Consultation ---
Date of Consultation January 05, 2023 Assessment & Plan (1) Alcohol intoxication: Plan Reason Critically Ill: 32-year-old male with a history of alcoholism, migraines, and ADHD who presents in setting of altered mental status and found to be intoxicated with a blood alcohol level of greater than 500 mcg/dL. Patient required intubation for airway protection. NEURO - * CAM ICU: Unable to assess secondary to level of sedation. * Sedation: Propofol * Analgesia: Fentanyl * Alcohol overdose: * Patient presenting with alcohol level of 565 mg/dL. * Currently intubated for airway protection. * Will remain sedated and intubated. We will repeat an alcohol in the morning with intent for hopeful early intubation. * CT head obtained which was found to be unremarkable. * No reported seizure-like activity or history of breakthrough seizures per conversation with patient's father. CARDIAC/VASCULAR - * No reported cardiac history or history of hypertension otherwise. * Monitor on telemetry. RESPIRATORY - * Respiratory failure: * In the setting of alcohol overdose. * Intubated for airway protection. * Titrate ventilator settings to settings required. * Helpful for early extubation. * Chest x-ray without infiltrative findings. Patient apparently was found with emesis around his mouth, but CXR finding without acute findings and not requiring significant ventilator settings. GI/NUTRITION - * Hold on tube feeds with plan for early extubation. * Prophylaxis: Famotidine RENAL/LYTES - * Elevated lactate: * Of uncertain cause. Patient without seizure activity noted. * Will repeat. * IVF: Plasmalyte @ 75 mL/hr - * Simmons in place - Strict I&Os. ENDO - * No h/o DM or Thyroid Dz. * BSGs per unit protocol. ISS --> gtt per unit policy. HEME - * Stable H&H ID - * No concerns for infection at this time. LINES/IV ACCESS - * PIVs x2 * ETT * Simmons DVT PROPHYLAXIS - * Heparin * SCDs I have personally spent 45 minutes of critical care time in the direct management of this patient. This is a life/limb threatening event. This includes time spent evaluating patient, direct bedside care, chart review, placing orders, interpretation of diagnostic studies, discussion with consultants, patient, and family members, as well as other required patient management activities. This time is exclusive of all separately billable procedures, and teaching time and separate from and in addition to any other critical care service time. Thank you for allowing us to participate in the care of this patient. Please refer to my attending physician's documentation for any further recommendations. Supervising Physician Co-Signing Physician Notes Patient seen and examined. EMR reviewed. Discussed with critical care IVAN and agree with assessment and plan as noted above. Patient is acutely intoxicated and was intubated in the emergency room. Continue supportive care as the patient metabolizes alcohol to freedom and anticipate we should be able to extubate him in the morning. Will continue to provide high-dose thiamine folate and multivitamin. Will observe for signs of alcohol withdrawal although his markedly elevated alcohol level at this point in time should cover him for the next 72 to 96 hours. Discussed with patient's father in the ER at bedside History of Present Illness Reason for Consultation: respiratory failure, intubation, alcohol overdose Requesting Physician: Dr. Anguiano Attending Physician: Dr. Anguiano History of Present Illness Patient is a 32-year-old male with a significant past medical history of alcohol abuse, migraines, and ADHD who presented to the emergency department in an unresponsive state. Per records and conversation with the patient's father and providers, the patient apparently had fallen in his bathroom. This was heard by his children who are in the house. They ran across the street to a neighbor who assessed the situation and called 911. Patient was brought to the emergency department where he was found to be unresponsive. He was reported to have spontaneous respirations, but the patient's face was covered in emesis and was noted to be gurgling. The patient was intubated for airway protection. Upon assessment in the emergency department, the patient is intubated and sedated. He is unable to participate in historical information. On review of the patient's records, the patient had a similar visit in August of this year for nearly the exact same presentation. Allergies Allergy/AdvReac Type Severity Reaction Status Date / Time azithromycin AdvReac Intermediate Gastrointestinal Verified 01/05/23 15:22 Upset Home Medications Medication Instructions Recorded Confirmed Type acetaminophen 325 mg tablet 650 mg PO QID PRN Pain 04/17/19 01/05/23 History (Tylenol) ibuprofen 200 mg tablet (Advil) 200 mg PO DIRECTED PRN Pain 09/03/22 01/05/23 History Patient History Medical History History of multiple concussions No pertinent past medical history Surgical History No pertinent past surgical history No significant past surgical history S/P wisdom tooth extraction S/P wrist surgery Family History Mother No pertinent family history Father No pertinent family history Social History Smoking Status: Unknown if ever smoked Tobacco Type: Smokeless Tobacco (Dip or Chew) Preferred Language: Ivorian marital status: current occupational status: employed Feels Safe at Home: Yes Review of Systems Review of Systems: Unable to assess secondary to intubation and sedation status. Physical Exam Physical Exam: VITAL SIGNS - Vital signs and nursing notes were reviewed. GENERAL - 32-year-old male appearing his stated age who is in no acute distress. Communicates well with provider and answers questions appropriately. SKIN - Without rashes. HEAD - NC/AT. EYES - Slightly dilated pupils, equal bilaterally. No scleral icterus appreciated. EARS - No deformities of external structures noted on gross examination bilaterally. NOSE - Midline and without cyanosis. MOUTH/OROPHARYNX - ETT in place. Without perioral cyanosis. NECK - Neck with FROM. LUNGS - Chest wall symmetric without accessory muscle use, intercostals retractions, or central cyanosis. Normal vesicular breath sounds CTA B/L. No wheezes, rales, or rhonchi appreciated. CARDIAC - RRR with S1/S2. No murmur, rubs, or gallops appreciated. ABDOMEN - Abdominal contour flat without pulsations or visible masses. BS normoactive all four quadrants. No tenderness, palpable masses, hepatosplenomegaly, or ascites noted. EXTREMITIES - No clubbing or peripheral cyanosis. No pretibial edema present. +3/5 radial and dorsalis pedis pulses palpated throughout. NEUROLOGIC - Unable to assess secondary to level of sedation. Moving all 4 extremities equally. Results & Data Results & Data Vital Signs (Past 12 Hours) Vital Signs Temp Pulse Resp BP Pulse Ox O2 Del Method FiO2 01/05/23 15:30 107/57 L 01/05/23 15:30 69 16 100 01/05/23 15:20 102/65 01/05/23 15:20 82 17 100 01/05/23 15:10 88 107/65 100 Mechanical Vent 01/05/23 15:08 Mechanical Vent 01/05/23 15:02 35.7 C L 01/05/23 15:00 72 16 109/64 100 Mechanical Vent 01/05/23 14:10 99 H 18 125/77 100 Mechanical Vent 01/05/23 14:00 94 H 17 112/87 100 Mechanical Vent 01/05/23 13:50 93 H 16 108/71 100 Mechanical Vent 01/05/23 13:49 94 H 17 103/73 100 Mechanical Vent 01/05/23 13:43 35.2 C L 01/05/23 13:40 92 H 17 107/67 100 Mechanical Vent 01/05/23 13:35 91 H 16 104/68 100 Mechanical Vent 01/05/23 13:31 17 111/73 100 Mechanical Vent 01/05/23 13:30 16 95/63 L 98 Mechanical Vent 01/05/23 13:28 100 H 16 100 30 01/05/23 13:26 108 H 17 121/87 100 01/05/23 13:23 99 H 9 L 122/93 99 01/05/23 13:17 102 H 01/05/23 13:11 105 H 16 133/99 100 Mechanical Vent 01/05/23 13:10 115 H 17 138/105 H 100 Mechanical Vent 01/05/23 13:02 102 H 16 133/98 99 Mechanical Vent 01/05/23 13:02 34.2 C L 01/05/23 12:50 120 H 12 100 01/05/23 12:40 116 H 17 124/90 98 Room Air 01/05/23 12:33 115 H 22 127/88 92 Room Air 01/05/23 12:29 105 H 20 127/88 94 Room Air Coding Level of Care Code 71354 CRITICAL CARE 1ST 30-74M Diagnoses Alcohol intoxication F10.929
[2023-01-05] MEDS ORDERED: PLASMA-LYTE A 1,000 ML IV SCH (18:00)
[2023-01-05] MEDS: ICU Protocol for HYPERglycemia SCH ×2 (18:34→21:41)
[2023-01-05] MEDS ORDERED: FAMOTIDINE 20 MG in SYRINGE 3 ML IV SCH (21:00)
[2023-01-06] MEDS ORDERED: D5W AND 1/2NSS 1,000 ML IV SCH (01:15)
[2023-01-06 04:08] LABS: iSTAT Allen Test Pass; iSTAT Art Bld Gas pCO2 Correct 30 mmHg (35-46); iSTAT Art Bld Gas pH Corrected 7.393 (7.35-7.45); iSTAT Arterial Blood Gas HCO3 19 meg/L (19-24); iSTAT Arterial Blood Gas pCO2 30 mmHg (35-46); iSTAT Arterial Blood Gas pH 7.39 (7.35-7.45); iSTAT Arterial Blood Gas pO2 148 mmHg (80-95); iSTAT Arterial Blood Gas pO2 C 147; iSTAT Carbon Dioxide 19 mmol/L (24-31); iSTAT FiO2 30 %; iSTAT Hematocrit 36 % (42-52); iSTAT Hemoglobin 12.2 g/dl (14.0-18.0); iSTAT Potassium 3.4 mmol/L (3.3-5.0); iSTAT Site L Radial; iSTAT Sodium 144 mmol/L (135-144)
[2023-01-06 04:48] LABS: Basophils # (auto) 0.05 K/uL (0.00-0.20); Basophils % (auto) 0.6 %; Eosinophils # (auto) 0.05 K/uL (0.00-0.50); Eosinophils % (auto) 0.6 %; Hematocrit (blood only) 37.9 % (42.0-52.0); Hemoglobin 12.8 g/dl (14.0-18.0); Immature Granulocytes # (auto) 0.01 K/uL (0.01-0.20); Immature Granulocytes % (auto) 0.1 %; Lymphocytes # (auto) 2.28 K/uL (1.20-3.40); Lymphocytes % (auto) 26.6 %; Mean Corpuscular Hemoglobin 30.5 pg (25.0-34.0); Mean Corpuscular Hgb Conc 33.8 g/dL (32.0-36.0); Mean Corpuscular Volume 90.2 fL (80.0-100.0); Mean Platelet Volume 9.9 fL (9.4-12.4); Monocytes # (auto) 1.14 K/uL (0.11-0.59); Monocytes % (auto) 13.3 %; Neutrophils # (auto) 5.04 K/uL (1.40-6.50); Neutrophils % (auto) 58.8 %; Platelet Count 162 K/uL (130-400); RDW Coefficient of Variation 13.4 % (11.5-14.5); RDW Standard Deviation 44.3 fL (36.4-46.3); White Blood Count 8.57 K/ul (4.8-10.8)
[2023-01-06 05:04] LABS: BUN Creatinine Ratio 14.9 (10-20); Calcium 8.4 mg/dl (8.6-10.3); Creatinine Clr Calc Pharmacy 172.1 ml/min; Est GFR (African American) 146.3 ml/min; Est GFR (Non-African American) 126.2 ml/min; Magnesium 1.9 mg/dl (1.7-2.4); Phosphorus 2.2 mg/dl (2.5-4.9); Potassium 3.5 mmol/L (3.5-5.1)
[2023-01-06] MEDS: propofoL 1,000 MG/100 ML VIAL IV SCH ×2 (05:35→19:43)
[2023-01-06] MEDS ORDERED: LORazepam 3 MG in SYRINGE 1.5 ML IV PRN (06:17)
[2023-01-06] MEDS ORDERED: LORazepam 2 MG in SYRINGE 1 ML IV PRN (06:17)
[2023-01-06] MEDS ORDERED: Ativan IV Alcohol Withdrawal--Active Protocol IV PRN (06:17)
[2023-01-06] MEDS ORDERED: POTASSIUM PHOS 3 MMOL/1 ML INFUSION IV STA (06:34)
[2023-01-06] MEDS ORDERED: ONDANSETRON INJ 2 MG/ML 2 ML VIAL IV PRN (06:44)
[2023-01-06] MEDS ORDERED: POTASSIUM PHOSPHATE 15 MMOL in SODIUM CHLORIDE 0.9% 250 ML IV ONE (07:00)
[2023-01-06] MEDS: LORazepam 1 MG in SYRINGE 0.5 ML IV PRN (07:01)
[2023-01-06] MEDS ORDERED: SODIUM CHLORIDE 0.9% 1,000 ML IV ONE (07:29)
--- NOTE | 2023-01-06 07:38 | Critical Care Progress Note ---
Date of Service January 06, 2023 Assessment & Plan (1) Alcohol intoxication: Plan Reason Critically Ill: 32-year-old male with a history of alcoholism, migraines, and ADHD who presents in setting of altered mental status and found to be intoxicated with a blood alcohol level of greater than 500 mcg/dL. He was extubated this morning and is doing well. He is tachycardic hypertensive. NEURO -extubated without difficulty. Continue as needed Ativan but the patient's blood alcohol level is high enough that it should cover him for acute withdrawal for the next day or 2. Holding his other anxiety medications for now. Continue high-dose thiamine and folate. Offered the patient the ability to meet with our nurse case management to talk about alcohol abstinence programs in the outpatient setting. Unclear if the patient is motivated. CARDIAC/VASCULAR -hypertensive and tachycardic. May be related to fever. May be still slightly volume depleted. Will give an additional 1 L of normal saline now. Start clonidine 0.2 mg which should help with agitation as well. RESPIRATORY -extubated. Patient was intubated for airway protection due to altered mental status. Oxygenating well. Will check chest x-ray given concerns about potential aspiration with altered levels of consciousness GI/NUTRITION -advance diet. Discontinue H2 cameron. Lipase mildly elevated consistent with mild pancreatitis but without abdominal pain. Follow clinically RENAL/LYTES -mild hypernatremia, hypokalemia, hypocalcemia and hypophosphatemia. Replace and follow clinically -discontinue Simmons ENDO - glycemic control per protocol HEME -mild decrease in hemoglobin and hematocrit this morning. No evidence of acute blood loss. Continue to follow. ID -mild fever this morning. Chest x-ray pending. Aspiration possible. Pancreatitis may also cause fever. Will hold antibiotics until chest x-ray is reviewed. LINES/IV ACCESS - * PIVs x2 DVT PROPHYLAXIS - * Heparin * SCDs Patient appears to be responding favorably at this point in time. His critical care issues have resolved. He can be transferred out of the intensive care unit. The patient states he has an intention to leave the hospital at noon today. He may sign out AGAINST MEDICAL ADVICE. I advised him that I think it is in his medical best interest to remain until the above issues have been adequately addressed and appropriate follow-up is undertaken. Critical care services will sign off. Long-term management per the admitting hospitalist service. Feel free to contact us should additional critical care issues arise Admission and Anticipated Discharge Date Admission Date: January 05, 2023 Subjective Patient seen and examined. EMR reviewed. Discussed with bedside critical care nurse as well as critical care IVAN. Patient was extubated this morning. He is currently awake alert and conversant. He states he wants to leave the hospital by noon today. He is complaining of some mild sore throat and feels thirsty and hungry. He is not having any hallucinations. He does not feel tremulous. He is tachycardic and hypertensive. He denies homicidal or suicidal ideations Review of Systems Review of Systems: All systems reviewed & are unremarkable except as noted in Subjective Physical Exam Constitutional: WD/WN, vitals as above Neck: trachea midline, no thyromegaly Respiratory: normal respiratory effort, lungs clear to auscultation Cardiovascular: RRR, no murmur, no edema Gastrointestinal (Abdomen): normal bowel sounds, soft, nontender, no hepatosplenomegaly Musculoskeletal: Extremities: extremities normal to inspection Skin: no rashes, warm and dry Neurologic: Nonfocal exam Lymphatic: no cervical lymphadenopathy Results & Data Results & Data Vital Signs (Past 12 Hours) Vital Signs Temp Pulse Resp BP Pulse Ox O2 Del Method FiO2 01/06/23 06:00 37.1 C 120 H 9 L 155/98 H 100 01/06/23 05:00 37.0 C 68 16 109/69 100 01/06/23 04:00 37.0 C 70 16 118/67 100 01/06/23 04:00 30 01/06/23 03:53 65 17 100 30 01/06/23 03:00 36.8 C 72 16 111/67 01/06/23 02:15 36.7 C 82 16 139/59 L 01/06/23 02:00 36.7 C 77 16 100 01/06/23 01:45 36.7 C 103 H 16 121/74 100 01/06/23 01:30 36.7 C 87 16 115/71 99 01/06/23 01:15 36.8 C 66 16 119/63 01/06/23 01:00 36.8 C 63 16 119/66 01/06/23 00:45 36.8 C 63 16 115/68 01/06/23 00:30 36.8 C 63 16 115/73 100 01/06/23 00:15 36.8 C 62 16 116/67 01/06/23 00:00 64 01/06/23 00:00 36.8 C 67 18 112/67 92 01/06/23 00:00 30 01/05/23 23:45 36.8 C 62 16 110/65 100 01/05/23 23:30 36.9 C 63 16 107/65 100 01/05/23 23:28 66 16 100 30 01/05/23 23:15 36.9 C 67 16 112/64 01/05/23 23:00 36.9 C 64 16 110/63 100 01/05/23 22:45 36.8 C 65 16 110/58 L 01/05/23 22:30 36.8 C 68 16 111/64 01/05/23 22:15 36.8 C 65 16 108/60 01/05/23 22:00 36.8 C 66 16 122/69 100 01/05/23 21:45 36.8 C 64 16 114/71 01/05/23 21:30 36.9 C 78 16 117/71 01/05/23 21:15 36.8 C 66 16 108/59 L 01/05/23 21:00 36.8 C 67 16 108/61 100 01/05/23 20:45 36.7 C 66 16 112/67 100 01/05/23 20:30 36.7 C 71 16 119/75 100 01/05/23 20:17 71 16 100 30 01/05/23 20:15 36.7 C 71 16 108/65 01/05/23 20:07 30 01/05/23 20:07 Mechanical Vent 30 01/05/23 20:00 36.7 C 69 16 102/64 01/05/23 19:45 36.7 C 70 16 102/62 Critical Care Results & Data Vital Signs (Past 12 Hours) Vital Signs Temp Pulse Resp BP Pulse Ox O2 Del Method FiO2 01/06/23 06:00 37.1 C 120 H 9 L 155/98 H 100 01/06/23 05:00 37.0 C 68 16 109/69 100 01/06/23 04:00 37.0 C 70 16 118/67 100 01/06/23 04:00 30 01/06/23 03:53 65 17 100 30 01/06/23 03:00 36.8 C 72 16 111/67 01/06/23 02:15 36.7 C 82 16 139/59 L 01/06/23 02:00 36.7 C 77 16 100 01/06/23 01:45 36.7 C 103 H 16 121/74 100 01/06/23 01:30 36.7 C 87 16 115/71 99 01/06/23 01:15 36.8 C 66 16 119/63 01/06/23 01:00 36.8 C 63 16 119/66 01/06/23 00:45 36.8 C 63 16 115/68 01/06/23 00:30 36.8 C 63 16 115/73 100 01/06/23 00:15 36.8 C 62 16 116/67 01/06/23 00:00 64 01/06/23 00:00 36.8 C 67 18 112/67 92 01/06/23 00:00 30 01/05/23 23:45 36.8 C 62 16 110/65 100 01/05/23 23:30 36.9 C 63 16 107/65 100 01/05/23 23:28 66 16 100 30 01/05/23 23:15 36.9 C 67 16 112/64 01/05/23 23:00 36.9 C 64 16 110/63 100 01/05/23 22:45 36.8 C 65 16 110/58 L 01/05/23 22:30 36.8 C 68 16 111/64 01/05/23 22:15 36.8 C 65 16 108/60 01/05/23 22:00 36.8 C 66 16 122/69 100 01/05/23 21:45 36.8 C 64 16 114/71 01/05/23 21:30 36.9 C 78 16 117/71 01/05/23 21:15 36.8 C 66 16 108/59 L 01/05/23 21:00 36.8 C 67 16 108/61 100 01/05/23 20:45 36.7 C 66 16 112/67 100 01/05/23 20:30 36.7 C 71 16 119/75 100 01/05/23 20:17 71 16 100 30 01/05/23 20:15 36.7 C 71 16 108/65 11/22/23 20:07 30 01/05/23 20:07 Mechanical Vent 30 01/05/23 20:00 36.7 C 69 16 102/64 01/05/23 19:45 36.7 C 70 16 102/62 Lab & Micro Results (Past 24 Hours) RBC 4.20 M/uL (4.70-6.10) L 01/06/23 WBC 8.57 K/ul (4.8-10.8) 01/06/23 Hgb 12.8 g/dl (14.0-18.0) L 01/06/23 Hct 37.9 % (42.0-52.0) L 01/06/23 MCV 90.2 fL (80.0-100.0) 01/06/23 MCH 30.5 pg (25.0-34.0) 01/06/23 MCHC 33.8 g/dL (32.0-36.0) 01/06/23 RDW Standard Deviation 44.3 fL (36.4-46.3) 01/06/23 RDW Coefficient of Variation 13.4 % (11.5-14.5) 01/06/23 Plt Count 162 K/uL (130-400) 01/06/23 MPV 9.9 fL (9.4-12.4) 01/06/23 Neutrophils (%) (Auto) 58.8 % 01/06/23 Lymphocytes (%) (Auto) 26.6 % 01/06/23 Monocytes # (Auto) 1.14 K/uL (0.11-0.59) H 01/06/23 Eosinophils # (Auto) 0.05 K/uL (0.00-0.50) 01/06/23 Immature Granulocyte % (Auto) 0.1 % 01/06/23 Neutrophils # (Auto) 5.04 K/uL (1.40-6.50) 01/06/23 Lymphocytes # (Auto) 2.28 K/uL (1.20-3.40) 01/06/23 Monocytes # (Auto) 1.14 K/uL (0.11-0.59) H 01/06/23 Eosinophils # (Auto) 0.05 K/uL (0.00-0.50) 01/06/23 Basophils # (Auto) 0.05 K/uL (0.00-0.20) 01/06/23 Immature Granulocyte # (Auto) 0.01 K/uL (0.01-0.20) 3 Na 145 mmol/L (136-145) 01/06/23 K 3.5 mmol/L (3.5-5.1) 01/06/23 Cl 109 mmol/L (98-107) H 01/06/23 CO2 23 mmol/L (21-32) 01/06/23 Anion Gap 13 (3-11) H 01/06/23 BUN 10 mg/dl (6-23) 01/06/23 Creatinine 0.67 mg/dl (0.6-1.4) 01/06/23 Estimated GFR ( Amer) 146.3 ml/min 01/06/23 Estimated GFR (Non-Af Amer) 126.2 ml/min 01/06/23 BUN/Creatinine Ratio 14.9 (10-20) 01/06/23 Glu 78 mg/dl (70-99(Fasting)) 01/06/23 Ca 8.4 mg/dl (8.6-10.3) L 01/06/23 Phosphorus Level 2.2 mg/dl (2.5-4.9) L 01/06/23 Total Bilirubin 0.3 mg/dl (0.2-1.0) 01/05/23 Direct Bilirubin 0.0 mg/dl (0-0.2) 01/05/23 AST 86 U/L (13-39) H 01/05/23 ALT 112 U/L (7-52) H 01/05/23 Alkaline Phosphatase 72 U/L (34-104) 01/05/23 TP 8.4 gm/dl (6.0-8.3) H 01/05/23 Albumin 4.7 gm/dl (3.4-5.0) 01/05/23 Mg 1.9 mg/dl (1.7-2.4) 01/06/23 04:02 Calcium Level 8.4 mg/dl (8.6-10.3) L 01/06/23 04:02 Nicholas Test Pass 01/06/23 03:54 Diagnostic Findings (Past 24 Hours) Chest X-Ray 01/05/23 13:03 SINGLE VIEW CHEST CLINICAL HISTORY: Intubation. Aspiration. FINDINGS: 2 AP, portable, supine chest radiographs are compared to study dated 01/21/2009. An endotracheal tube has been placed. The tip projects approximately 4 cm above the kalie on the second image. The cardiomediastinal silhouette is unremarkable. The lungs and pleural spaces are clear. No pneumothorax is seen. The bony thorax is grossly intact. IMPRESSION: 1. An endotracheal tube has been placed as above. 2. The lungs are clear. ACT 112: Negative or not required by law. Electronically signed by: Len Dempsey M.D. 01/05/2023 1:[address] 01/05/23 13:03 CT SCAN OF THE BRAIN WITHOUT IV CONTRAST CLINICAL HISTORY: Change in mental status. Found down. COMPARISON STUDY: CT of the brain dated 09/03/2022. TECHNIQUE: Unenhanced axial CT scan of the brain is performed from the vertex to the skull base. A dose lowering technique was utilized adhering to the principles of ALARA. CT DOSE: 688.24 mGy.cm FINDINGS: An endotracheal tube is noted on the nutritionalist tomogram. Layering fluid is noted in the pharynx. Brain parenchyma: The brain parenchyma is normal in appearance. There is no hemorrhage, mass effect, or evidence of acute territorial ischemia by CT criteria. Celestin-white matter differentiation is preserved. No extra-axial fluid collection is seen. Ventricles, sulci, cisterns: Normal in configuration. Intracranial vasculature: The visualized intracranial vasculature at the skull base is normal in appearance. Calvarium: Unremarkable. Sinuses and mastoids: There is mild mucosal thickening and fluid within the ethmoid sinuses. Trace fluid is seen within the right maxillary antrum, the sp henoid sinuses, and the left frontal sinus. The mastoid air cells are well pneumatized. Orbits: The bony orbits are grossly intact. IMPRESSION: No acute intracranial abnormality. ACT 112: Negative or not required by law. Electronically signed by: Len Dempsey M.D. 01/05/2023 1:26 PM I & O Totals 24 Hours 01/05/23 01/06/23 01/07/23 06:59 06:59 06:59 Intake Total 2448.618 / 2448.618 Output Total 1790 / 1790 Balance 658.618 / 658.618 Cumulative 01/05/23 12:19 thru 01/06/23 06:23 Intake Total 2448.618 Output Total 1790 Balance 658.618 RT Ventilator Mngmt (Last Documented) Ventilator Ordered Settings Ventilator Support Mode Assist Control 01/06/23 04:00 Respiratory Rate 9 01/06/23 06:00 Ventilator Tidal Volume 470 01/06/23 04:00 Setting Minute Ventilation 7.5 01/06/23 03:53 Positive End Expiratory 5 01/06/23 04:00 Pressure Fraction of Inspired Oxygen 30 01/06/23 04:00 Ventilator - PT Measurements Respiratory Rate 9 Exhaled Tidal Volume 470 Minute Ventilation 7.5 Peak Inspiratory Airway 16 Pressure Plateau Pressure 12.9 Respiratory Cycle Inspiratory: 1:3.7 Expiratory Ratio Inspiratory Phase Time 0.8 End-Tidal CO2 29 Static Lung Compliance 59.49 Dynamic Lung Compliance 42.73 Normal Static Lung Compliance 48.00 Coding Level of Care Code 37711 SUB INP/OBS CARE 3/50MIN Diagnoses Alcohol intoxication F10.929
--- NOTE | 2023-01-06 07:52 | Electrocardiogram Report ---
Test Reason : Blood Pressure : / mmHG Vent. Rate : 098 BPM Atrial Rate : 098 BPM P-R Int : 152 ms QRS Dur : 092 ms QT Int : 362 ms P-R-T Axes : 074 075 043 degrees QTc Int : 462 ms Normal sinus rhythm Cannot rule out Septal infarct , age undetermined Abnormal ECG When compared with ECG of 03-SEP-2022 15:14, Septal infarct is now Present Confirmed by Sage Last ([id number]) on 01/06/2023 7:51:49 AM Referred By: REFERRED SELF Confirmed By:Sage Last
[2023-01-06] MEDS: cloNIDine HCL 0.1 MG TAB PO SCH (08:14)
[2023-01-06] MEDS: ENOXAPARIN INJ 40 MG/0.4 ML SYR SQ SCH (08:15)
[2023-01-06] MEDS: POT PHOSPHATE MONOBASIC W/ SOD TAB PO SCH ×3 (08:17→16:32)
[2023-01-06] MEDS ORDERED: FOLIC ACID 1 MG in SYRINGE 9.8 ML IV SCH (09:00)
[2023-01-06] MEDS ORDERED: THIAMINE HCL 100 MG in SYRINGE 9 ML IV SCH (09:00)
--- NOTE | 2023-01-06 09:05 | Hospitalist Progress Note ---
Date of Service January 06, 2023 Assessment & Plan (1) Alcohol intoxication: Plan: Acute alcohol intoxication Alcohol level of 565 on admission Intubated for airway protection, extubated 01/06/2023 patient with fever with no obvious source of infection, No leukocytosis, lungs are clear to auscultation, chest x-ray shows no evidence of aspiration pneumonia - CThead without acute finding, for alcohol withdrawal will start scheduled Librium with consideration of using Neurontin alcohol withdrawal scale. Patient is on clonidine for hypertension control and secondary symptom control from alcohol withdrawal (2) History of multiple concussions: Plan: Hx post-concussion syndrome. Follows with neurology. Has had ADHD/headache/postconcussive syndrome; follow-up MRI and formal neuropsychologic evaluation was recommended by neurology, Patient was recommended to start Topamax for migrainous headaches however this does not appear to have been filled. He was post aripiprazole 2 mg daily, Bupropion 150mg daily last filled 10/2022 for 30-day supply. This does not appear to have been refilled since. we will not start any of these medications until we have a more appropriately through his alcohol withdrawal Plan DVT prophylaxis: Lovenox downgrade from ICU to progressive care all medications and orders reviewed and verified CODE STATUS: Full code Diet: clear liquid advance as tolerated Admission and Anticipated Discharge Date Admission Date: January 05, 2023 Subjective this pt is tremulous and tachycardic, has family in room Pt is not interested in leaving AMA. understands will be better if he stays here Physical Exam Physical Exam: Awake and alert appropriate tremulous tachycardic hypertensive lungs are clear abdomen NABS soft and nontender Results & Data Results & Data Vital Signs (Past 12 Hours) Vital Signs Temp Pulse Resp BP Pulse Ox FiO2 01/06/23 06:00 98.8 F 120 H 9 L 155/98 H 100 01/06/23 05:00 98.6 F 68 16 109/69 100 01/06/23 04:00 98.6 F 70 16 118/67 100 01/06/23 04:00 30 01/06/23 03:53 65 17 100 30 01/06/23 03:00 98.2 F 72 16 111/67 01/06/23 02:15 98.1 F 82 16 139/59 L 01/06/23 02:00 98.1 F 77 16 100 01/06/23 01:45 98.1 F 103 H 16 121/74 100 01/06/23 01:30 98.1 F 87 16 115/71 99 01/06/23 01:15 98.2 F 66 16 119/63 01/06/23 01:00 98.2 F 63 16 119/66 01/06/23 00:45 98.2 F 63 16 115/68 01/06/23 00:30 98.2 F 63 16 115/73 100 01/06/23 00:15 98.2 F 62 16 116/67 01/06/23 00:00 64 01/06/23 00:00 98.2 F 67 18 112/67 92 01/06/23 00:00 30 01/05/23 23:45 98.2 F 62 16 110/65 100 01/05/23 23:30 98.4 F 63 16 107/65 100 01/05/23 23:28 66 16 100 30 01/05/23 23:15 98.4 F 67 16 112/64 01/05/23 23:00 98.4 F 64 16 110/63 100 01/05/23 22:45 98.2 F 65 16 110/58 L 01/05/23 22:30 98.2 F 68 16 111/64 01/05/23 22:15 98.2 F 65 16 108/60 01/05/23 22:00 98.2 F 66 16 122/69 100 01/05/23 21:45 98.2 F 64 16 114/71 01/05/23 21:30 98.4 F 78 16 117/71 01/05/23 21:15 98.2 F 66 16 108/59 L Laboratory Results reviewed CBC reviewed chemistry reviewed case with intensive care physician PG Care Time/CCT Total # of Minutes Spent Total Time Spent with Patient: Total time spent is greater than 50% in coordination of care (as documented) at patient's floor/unit and/or counseling patient: Coding Level of Care Code 87263 SUB INP/OBS CARE 3/50MIN Diagnoses Alcohol intoxication F10.929 History of multiple concussions Z87.820
--- NOTE | 2023-01-06 10:16 | XRay Report ---
XR chest 1V portable CLINICAL HISTORY: fever TECHNIQUE: Single frontal radiograph of the chest was obtained. Comparison: Comparison is made to chest radiograph 01/05/2023 FINDINGS: Interval removal of endotracheal tube. The cardiomediastinal silhouette is normal. The lungs are zeynep r. No evidence of pleural effusion or pneumothorax. IMPRESSION: No acute abnormalities and in particular no radiographic evidence of pneumonia. ACT 112: Negative or not required by law. Electronically signed by: Solis Ly M.D. 01/06/2023 10:15 AM
[2023-01-06] MEDS ORDERED: chlordiazePOXIDE HCl 25 MG CAP PO ONE ×2 (10:24→13:02)
[2023-01-06] MEDS: ACETAMINOPHEN 325 MG TAB PO PRN (11:37)
[2023-01-06] MEDS: ICU Protocol for HYPERglycemia SCH (19:38)
[2023-01-06] MEDS: THIAMINE HCL 100 MG TAB PO SCH (20:55)
[2023-01-06] MEDS: chlordiazePOXIDE HCl 25 MG CAP PO SCH (20:55)
[2023-01-07] MEDS: ACETAMINOPHEN 325 MG TAB PO PRN (00:07)
[2023-01-07] MEDS: LORazepam 1 MG in SYRINGE 0.5 ML IV PRN (01:04)
[2023-01-07 04:51] LABS: Basophils # (auto) 0.04 K/uL (0.00-0.20); Basophils % (auto) 0.7 %; Eosinophils # (auto) 0.05 K/uL (0.00-0.50); Eosinophils % (auto) 0.9 %; Hemoglobin 12.3 g/dl (14.0-18.0); Immature Granulocytes # (auto) 0.01 K/uL (0.01-0.20); Immature Granulocytes % (auto) 0.2 %; Lymphocytes % (auto) 27.4 %; Mean Corpuscular Hemoglobin 31.2 pg (25.0-34.0); Mean Corpuscular Hgb Conc 36.2 g/dL (32.0-36.0); Mean Corpuscular Volume 86.3 fL (80.0-100.0); Mean Platelet Volume 10.2 fL (9.4-12.4); Monocytes # (auto) 0.68 K/uL (0.11-0.59); Monocytes % (auto) 11.6 %; Neutrophils # (auto) 3.46 K/uL (1.40-6.50); Neutrophils % (auto) 59.2 %; Platelet Count 158 K/uL (130-400); RDW Coefficient of Variation 12.4 % (11.5-14.5); RDW Standard Deviation 39.5 fL (36.4-46.3); Red Blood Count 3.94 M/uL (4.70-6.10); White Blood Count 5.84 K/ul (4.8-10.8)
[2023-01-07 05:03] LABS: Calcium 8.4 mg/dl (8.6-10.3); Creatinine Clr Calc Pharmacy 177.4 ml/min; Est GFR (African American) 148.2 ml/min; Est GFR (Non-African American) 127.8 ml/min; Magnesium 1.7 mg/dl (1.7-2.4); Phosphorus 3.2 mg/dl (2.5-4.9); Potassium 3.6 mmol/L (3.5-5.1)
[2023-01-07] MEDS: chlordiazePOXIDE HCl 25 MG CAP PO SCH ×3 (06:19→20:13)
[2023-01-07] MEDS: THIAMINE HCL 100 MG TAB PO SCH ×2 (07:36→20:13)
[2023-01-07] MEDS: FOLIC ACID 1 MG TAB PO SCH (07:36)
[2023-01-07] MEDS: cloNIDine HCL 0.1 MG TAB PO SCH (07:36)
[2023-01-07] MEDS: ENOXAPARIN INJ 40 MG/0.4 ML SYR SQ SCH (07:37)
[2023-01-07] MEDS ORDERED: THIAMINE HCL 100 MG in SYRINGE 9 ML IV SCH (09:00)
--- NOTE | 2023-01-07 16:26 | Hospitalist Progress Note ---
Date of Service January 07, 2023 Assessment & Plan (1) Alcohol intoxication: Plan: Acute alcohol intoxication Alcohol level of 565 on admission Intubated for airway protection, extubated 01/06/2023 patient with fever productive cough, lungs are clear to auscultation, chest x- ray shows no evidence of aspiration pneumonia, however with intubation will start po Augmentin for possible aspiration pneumonitis - CThead without acute finding, for alcohol withdrawal now on scheduled Librium, continue alcohol withdrawal scale. Patient is on clonidine for hypertension control and secondary symptom control from alcohol withdrawal (2) History of multiple concussions: Plan: Hx post-concussion syndrome. Follows with neurology. Has had ADHD/headache/postconcussive syndrome; follow-up MRI and formal neuropsychologic evaluation was recommended by neurology, Patient was recommended to start Topamax for migrainous headaches however this does not appear to have been filled. He was post aripiprazole 2 mg daily, Bupropion 150mg daily last filled 10/2022 for 30-day supply. This does not appear to have been refilled since. we will not start any of these medications until we have a more appropriately through his alcohol withdrawal Plan DVT prophylaxis: Lovenox downgrade from PCU to med surg all orders and medications reviewed/ammneded CODE STATUS: Full code Diet:regular Admission and Anticipated Discharge Date Admission Date: January 05, 2023 Subjective this pt is much less tremulous and no longer tachycardic, has family in room does have a protection from abuse order and cannot return home family is supportive but there is not a plan for a safe location Physical Exam Physical Exam: Awake and alert appropriate is not lungs are clear abdomen NABS soft and nontender Results & Data Results & Data Vital Signs (Past 12 Hours) Vital Signs Temp Pulse Resp BP Pulse Ox O2 Del Method 01/07/23 15:00 72 18 01/07/23 14:00 86 13 01/07/23 13:00 77 15 01/07/23 12:08 99.1 F 01/07/23 12:03 135/90 01/07/23 12:03 98 H 15 97 Room Air 01/07/23 12:00 85 10 L 01/07/23 11:00 84 14 01/07/23 10:00 92 H 11 L 01/07/23 09:00 75 16 01/07/23 08:03 99.1 F 01/07/23 08:00 75 17 01/07/23 07:35 91 H 14 98 Room Air 01/07/23 07:35 152/97 H 01/07/23 07:00 70 5 L PG Care Time/CCT Total # of Minutes Spent Total Time Spent with Patient: Total time spent is greater than 50% in coordination of care (as documented) at patient's floor/unit and/or counseling patient: Coding Level of Care Code 49111 SUB INP/OBS CARE 2/35MIN Diagnoses Alcohol intoxication F10.929 History of multiple concussions Z87.820
[2023-01-07] MEDS: AMOXICILLIN/CLAVULANATE 875 MG TAB PO SCH (17:33)
[2023-01-08] MEDS: LORazepam 1 MG in SYRINGE 0.5 ML IV PRN ×3 (00:59→21:09)
[2023-01-08] MEDS: chlordiazePOXIDE HCl 25 MG CAP PO SCH ×3 (06:16→21:08)
[2023-01-08 06:37] LABS: Basophils # (auto) 0.03 K/uL (0.00-0.20); Basophils % (auto) 0.6 %; Eosinophils # (auto) 0.05 K/uL (0.00-0.50); Hematocrit (blood only) 36.6 % (42.0-52.0); Hemoglobin 13.3 g/dl (14.0-18.0); Immature Granulocytes # (auto) 0.02 K/uL (0.01-0.20); Immature Granulocytes % (auto) 0.4 %; Lymphocytes # (auto) 1.27 K/uL (1.20-3.40); Lymphocytes % (auto) 24.3 %; Mean Corpuscular Hemoglobin 30.6 pg (25.0-34.0); Mean Corpuscular Hgb Conc 36.3 g/dL (32.0-36.0); Mean Corpuscular Volume 84.1 fL (80.0-100.0); Mean Platelet Volume 10.2 fL (9.4-12.4); Monocytes # (auto) 0.57 K/uL (0.11-0.59); Monocytes % (auto) 10.9 %; Neutrophils # (auto) 3.29 K/uL (1.40-6.50); Neutrophils % (auto) 62.8 %; Platelet Count 159 K/uL (130-400); RDW Coefficient of Variation 12.2 % (11.5-14.5); RDW Standard Deviation 37.2 fL (36.4-46.3); Red Blood Count 4.35 M/uL (4.70-6.10); White Blood Count 5.23 K/ul (4.8-10.8)
[2023-01-08 07:09] LABS: Anion Gap 9 (3-11); BUN Creatinine Ratio 19.4 (10-20); Blood Urea Nitrogen 12 mg/dl (6-23); Carbon Dioxide 24 mmol/L (21-32); Chloride 106 mmol/L (98-107); Est GFR (African American) > 150.0 ml/min; Est GFR (Non-African American) 130.3 ml/min; Glucose 95 mg/dl (70-99(Fasting)); Sodium 139 mmol/L (136-145)
[2023-01-08] MEDS: AMOXICILLIN/CLAVULANATE 875 MG TAB PO SCH ×2 (07:49→16:50)
[2023-01-08] MEDS: FOLIC ACID 1 MG TAB PO SCH (08:50)
[2023-01-08] MEDS: cloNIDine HCL 0.1 MG TAB PO SCH (08:50)
[2023-01-08] MEDS: ENOXAPARIN INJ 40 MG/0.4 ML SYR SQ SCH (08:50)
[2023-01-08] MEDS: THIAMINE HCL 100 MG TAB PO SCH ×2 (08:50→21:08)
--- NOTE | 2023-01-08 15:59 | Hospitalist Progress Note ---
Date of Service January 08, 2023 Assessment & Plan (1) Alcohol intoxication: Plan: Acute alcohol intoxication Alcohol level of 565 on admission Intubated for airway protection, extubated 01/06/2023 patient with fever productive cough, lungs are clear to auscultation, chest x- ray shows no evidence of aspiration pneumonia, however with intubation will start po Augmentin for possible aspiration pneumonitis - CThead without acute finding, for alcohol withdrawal now on scheduled Librium, continue alcohol withdrawal scale. Patient is on clonidine for hypertension control and secondary symptom control from alcohol withdrawal (2) History of multiple concussions: Plan: Hx post-concussion syndrome. Follows with neurology. Has had ADHD/headache/postconcussive syndrome; follow-up MRI and formal neuropsychologic evaluation was recommended by neurology, Patient was recommended to start Topamax for migrainous headaches however this does not appear to have been filled. He was post aripiprazole 2 mg daily, Bupropion 150mg daily last filled 10/2022 for 30-day supply. This does not appear to have been refilled since. we will not start any of these medications until we have a more appropriately through his alcohol withdrawal Plan DVT prophylaxis: Lovenox CODE STATUS: Full code Diet:regular Discharge after social issues addressed. Patient does not have a home to go to. Admission and Anticipated Discharge Date Admission Date: January 05, 2023 Subjective Patient is feeling very emotional and tearful. He is sitting with his sister at the bedside and talking about his emotional stresses. Denies chest pain or shortness of breath. Review of Systems Review of Systems: All systems reviewed & are unremarkable except as noted in Subjective Physical Exam Physical Exam: General: Awake, conversant Heart: S1, S2/regular rate and rhythm, no murmur rubs or gallops Lungs: Clear to auscultation bilaterally. Normal effort Abdomen: Soft/nontender/nondistended. No hepatosplenomegaly Extremities: No clubbing/cyanosis. No edema Behavior: Appropriate, cooperative Results & Data Results & Data Vital Signs (Past 12 Hours) Vital Signs Temp Pulse Resp BP Pulse Ox O2 Del Method 01/08/23 15:06 37.3 C 68 16 136/90 97 Room Air 01/08/23 12:02 36.9 C 86 17 122/81 97 Room Air 01/08/23 08:55 Room Air 01/08/23 08:04 36.8 C 96 H 16 144/98 H 98 Room Air PG Care Time/CCT Total # of Minutes Spent Total Time Spent with Patient: Total time spent is greater than 50% in coordination of care (as documented) at patient's floor/unit and/or counseling patient: Coding Level of Care Code 66256 SUB INP/OBS CARE 2/35MIN Diagnoses Alcohol intoxication F10.929 History of multiple concussions Z87.820
[2023-01-08] MEDS ORDERED: MELATONIN 3 MG TAB PO PRN (21:21)
[2023-01-09] MEDS: chlordiazePOXIDE HCl 25 MG CAP PO SCH (05:57)
[2023-01-09] MEDS: cloNIDine HCL 0.1 MG TAB PO SCH (08:02)
[2023-01-09] MEDS: AMOXICILLIN/CLAVULANATE 875 MG TAB PO SCH (08:02)
[2023-01-09] MEDS: ENOXAPARIN INJ 40 MG/0.4 ML SYR SQ SCH (08:03)
[2023-01-09] MEDS: FOLIC ACID 1 MG TAB PO SCH (08:03)
[2023-01-09] MEDS: THIAMINE HCL 100 MG TAB PO SCH (08:03)
[2023-01-09] MEDS ORDERED: chlordiazePOXIDE HCl 25 MG CAP PO ONE (13:02)
--- NOTE | 2023-01-09 13:03 | Discharge Summary ---
Date of Service January 09, 2023 Admission HPI Per Admitting Provider Olvin is a 32-year-old male with a history of anxiety/depression, postconcussion syndrome, and alcohol abuse who presents to the ER with alcohol intoxication and he was intubated with a alcohol level of over 500. He was recommended for admission to ICU for ventilator management and treatment of acute alcohol intoxication. History is limited by ETT and sedation. He withdraws to noxious stimuli bilaterally and has intact corneal reflex at bedside. Lungs are clear bilaterally. History limited by ETT. Collateral pending from PCP Admission Exam Per Admitting Provider General: ETT in place. Corneal reflex intact, withdraws to noxious stimuli of the thumb bilaterally HEENT: Atraumatic, normocephalic. Pulm: CTAB A&P. -wheezes, -rales, -rhonchi. Symmetrical chest rise. No increased work of breathing. No respiratory distress. Cardiac: RRR, -mrg. Radial pulses intact and symmetrical. Abdominal: Nontender, nondistended, soft. BS present. Extremities: No edema Principal Diagnosis Acute alcohol intoxication requiring intubation for airway protection Discharge Exam General: Awake, conversant Heart: S1, S2/regular rate and rhythm, no murmur rubs or gallops Lungs: Clear to auscultation bilaterally. Normal effort Abdomen: Soft/nontender/nondistended. No hepatosplenomegaly Extremities: No clubbing/cyanosis. No edema Behavior: Appropriate, cooperative Discharge Data Allergies Allergy/AdvReac Type Severity Reaction Status Date / Time azithromycin AdvReac Intermediate Gastrointestinal Verified 01/05/23 15:22 Upset Consultations 01/05/23 15:12 ED Decision to Admit Stat 01/05/23 17:54 Consult Manager Transit Routine 01/05/23 18:32 Consult Behavioral Health Liaison Routine Ordered Studies 01/05/23 13:[address] [CT head/brain wo con] Stat Hospital Course (1) Alcohol intoxication: Acute alcohol intoxication Alcohol level of 565 on admission Intubated for airway protection, extubated 01/06/2023 patient with fever productive cough, lungs are clear to auscultation, chest x- ray shows no evidence of aspiration pneumonia, however with intubation being treated with Augmentin for possible aspiration pneumonitis - CThead without acute finding, for alcohol withdrawal now on scheduled Librium, continue alcohol withdrawal scale. (2) History of multiple concussions: Hx post-concussion syndrome. Follows with neurology. Has had ADHD/headache/postconcussive syndrome; follow-up MRI and formal neuropsychologic evaluation was recommended by neurology, Patient was recommended to start Topamax for migrainous headaches however this does not appear to have been filled. He was post aripiprazole 2 mg daily, Bupropion 150mg daily last filled 10/2022 for 30-day supply. This does not appear to have been refilled since. we will not start any of these medications until we have a more appropriately through his alcohol withdrawal Plan DVT prophylaxis: Lovenox CODE STATUS: Full code Diet:regular Discharge to alcohol rehab today Total Time Total Time Spent Total Time Spent (In Minutes): 35 Discharge Plan Discharge Items Patient Disposition: Drug & Alcohol Rehab Reason For Visit: ETOH INTOX REQUIRING INTUBATION Discharge Diagnosis: Acute alcohol intoxication requiring intubation for airway protection Activity: Resume your previous activity Non-emergency contact: Primary Care Provider Call non-emergency contact if: you have any medication questions and your symptoms worsen Follow-up/Referrals: Hoang Aguayo [Primary Care Provider] - Diet: Regular Addtl Attending Provider Instructions: Advised to follow-up with PCP in 1 week Pending Studies at Discharge: No Stand-[facility]one [facility] Sk[facility] Items Patient informed of condition?: Yes DNR: No Discharge Level of Care: Other Communicable Disease: No Discharge Prognosis: Stable Lines: None Urinary Catheter: No Medications and DC Order Prescriptions: New amoxicillin-pot clavulanate 875-125 mg Tablet 1 tab PO BIDM 2 Days Qty: 4 0RF Continued acetaminophen [Tylenol] 325 mg Tablet 650 mg PO QID PRN (Reason: Pain) ibuprofen [Advil] 200 mg Tablet 200 mg PO DIRECTED PRN (Reason: Pain) Discharge Orders: Discharge Order (Routine); Ordered 01/09/23 Ordered By: Ryan Valentin/Other Patient Handouts: Alcohol Addiction Admission Data Admit Date/Time: 01/05/23 15:36 Attending Provider: Ryan Lindsay Admit Provider: Favian Anguiano Primary Care Provider: Hoang Aguayo Other Providers: Favian Anguiano; Lan Santillan Other Interventions: Discharge Summary Assessment (RN) Last Done: 01/09/23 13:50 Coding Level of Care Code 73837 INP/OBS DISCH >30 MIN Diagnoses Alcohol intoxication F10.929 History of multiple concussions Z87.820
[2023-01-09] MEDS ORDERED: chlordiazePOXIDE HCl 25 MG CAP PO SCH (21:00)
== END 2023-01-09 15:26 | disposition alcohol treatment (31) | DRG 897 ==
LOC: ED 12:26 → SUATTDRO 15:36 → 1E 15:36 → 3W 01-07 18:36